=== PATIENT | female | born 1950 | race Two or more races ===

== ENCOUNTER 2019-09-09 06:16 | Day surgery (SDC) | payer OTHER ==
[~2019-09-09 06:16] MED LIST: Acetaminophen TAB* 325 MG PO PRN; Buffered Lidocaine 1% SYRIN* 1 ML/SYRINGE INTRADERM ONE
[2019-09-09] MEDS ORDERED: Midazolam* 1 MG/ML 2 ML VIAL (2 MG) ONE ×2 (07:28→07:33)
[2019-09-09 08:17] VITALS: BP 128/76
--- NOTE | 2019-09-09 09:42 | OP ---
DATE OF OPERATION: 09/09/19 [facility] DATE OF : 50 SURGEON: Lane Davies MD. MUD CAR WORKER: None. ANESTHESIA: Topical with intravenous sedation. PRE-OP DIAGNOSIS: Cataract with astigmatism and glaucoma, left eye. POST-OP DIAGNOSIS: Cataract with astigmatism and glaucoma, left eye. OPERATIVE PROCEDURE: Phacoemulsification and cataract extraction with posterior chamber toric intraocular lens implant and iStent implant, left eye. COMPLICATIONS: None. ESTIMATED BLOOD LOSS: None. DESCRIPTION OF PROCEDURE: The patient was brought to the operating room and given intravenous sedation. A drop of Tetracaine was placed in her left eye. The patient was prepped and draped in the usual sterile fashion for ophthalmic surgery and attention was directed to the left eye where a speculum was placed. A paracentesis was created at the 6 o'clock position and 0.1 cc of 1% preservative- free lidocaine was injected into the anterior chamber followed by DisCoVisc. The eye was digitally stabilized while a 2.75 mm keratome was used to create a triplanar clear corneal incision at the 3 o'clock position. A continuous curvilinear capsulorrhexis was created using a cystotome and Utrata forceps. BSS on a cannula was used to hydrodissect the lens from the capsule. Phacoemulsification was performed in a rzyiso-jts-wtylqvv technique to create 4 fragments, which were removed. Residual cortical material was removed with irrigation and aspiration. The capsular bag was polished. Provisc was used to inflate the capsular bag and the anterior chamber. The intraocular pressure was measured and found to be appropriate. The surface of the eye was lubricated with balanced saline solution. The ORA device was employed to help guide lens choice. An SN6AT5 19 diopter lens was chosen. The lens was folded and inserted into the capsular bag. The radical on the ORA helped to line the axis of the lens to 148 degrees. This was done using a Sinskey hook through the eye to rotate the lens. At this point, DisCoVisc was used to deepen the anterior chamber and coat the surface of the cornea. The patient's head was rotated away from the surgeon and the microscope was rotated toward the surgeon. A gonioprism was placed in the surface of the eye. An iStent was introduced into the anterior chamber on its carcass washer. The iStent was placed into the nasal trabecular meshwork. The carcass washer and the prism were removed. The head of the patient and the microscope were returned to a neutral position. Irrigation and aspiration were performed to remove viscoelastic from the eye. The lens was kept in a stable position using the Sinskey hook. Minimal bleeding occurred from Schlemm's canal. BSS was injected to the anterior chamber and was used to hydrate the cornea and seal the wound. The elevated pressure resulting from the balanced saline injection was enough to tamponade the mild bleeding. At the end of the case, the wound was watertight and the intraocular pressure appeared slightly elevated. The lens was stable, centered , and axially aligned. The iStent was in good position. There were red blood cells circulating the anterior chamber, but no ongoing bleeding. The speculum was removed. Topical Maxitrol ointment was placed in the surface of the eye. The eye was closed, patched, and shielded, and the patient was sent to recovery room in stable condition with postop instructions and followup appointment given. [id number]/[facility] #: [id number]
[2019-09-09] MEDS ORDERED: Phenylephrine OPHTH SOL 2.5%* 2 ML ONE (15:11)
[2019-09-09] MEDS ORDERED: Tropicamide 1% OPTH.SOL* BTL ONE (15:11)
[2019-09-09] MEDS ORDERED: Lidocaine 1% MPF ** 5 ML VIAL ONE (15:11)
[2019-09-09] MEDS ORDERED: Ketorolac 0.5% OPHTH (NF) 0.5 % 5 ML BTL ONE (15:11)
[2019-09-09] MEDS ORDERED: Cyclopentolate 1% OPTH.SOL* 2 ML BTL ONE (15:11)
[2019-09-09] MEDS ORDERED: Neomycin/Polymy/Dex OPHTH.OIN* 3.5 GM ONE (15:11)
[2019-09-09] MEDS ORDERED: Tetracaine 0.5% OPTH.SOL 4 ML* 1 DROP BTL ONE (15:11)
== END 2019-09-09 08:27 | disposition home or self-care (01) ==
LOC: OREAST 06:16
PROVIDERS: ATTEND Ophthalmology
DX: H25.12 Age-related nuclear cataract, left eye (principal); H40.1121 Primary open-angle glaucoma, left eye, mild stage; H52.202 Unspecified astigmatism, left eye; K21.9 Gastro-esophageal reflux disease without esophagitis; K44.9 Diaphragmatic hernia without obstruction or gangrene
CPT/HCPCS: A9270-GY; C1783; J2250; V2787

== ENCOUNTER 2019-09-16 07:11 | Day surgery (SDC) | payer OTHER ==
[2019-09-16] MEDS ORDERED: Cyclopentolate 1% OPTH.SOL* 2 ML BTL ONE (07:51)
[2019-09-16] MEDS ORDERED: Tropicamide 1% OPTH.SOL* BTL ONE (07:52)
[2019-09-16] MEDS ORDERED: Ketorolac 0.5% OPHTH (NF) 0.5 % 5 ML BTL ONE (07:52)
[2019-09-16] MEDS ORDERED: Lidocaine 1% MPF ** 5 ML VIAL ONE (07:52)
[2019-09-16] MEDS ORDERED: Neomycin/Polymy/Dex OPHTH.OIN* 3.5 GM ONE (07:52)
[2019-09-16] MEDS ORDERED: Phenylephrine OPHTH SOL 2.5%* 2 ML ONE (07:52)
[2019-09-16] MEDS ORDERED: Tetracaine 0.5% OPTH.SOL 4 ML* 1 DROP BTL ONE (07:52)
[2019-09-16] MEDS ORDERED: Midazolam* 1 MG/ML 2 ML VIAL (2 MG) ONE ×2 (08:19→08:31)
[2019-09-16] MEDS ORDERED: fentaNYL* 50 MCG/ML 2 ML VIAL (100 MCG VIAL) ONE (08:31)
[2019-09-16 09:36] VITALS: BP 106/76
--- NOTE | 2019-09-16 13:17 | OP ---
DATE OF OPERATION: 09/16/19 [facility] DATE OF : 50 SURGEON: Lane Davies MD CREW DIRECTOR: None. ANESTHESIA: Topical with intravenous sedation. PRE-OP DIAGNOSIS: Cataract with astigmatism and glaucoma, right eye. POST-OP DIAGNOSIS: Cataract with astigmatism and glaucoma, right eye. OPERATIVE PROCEDURE: Phacoemulsification and cataract extraction with posterior chamber toric intraocular lens implant and iStent implant, right eye. COMPLICATIONS: None. ESTIMATED BLOOD LOSS: None. DESCRIPTION OF PROCEDURE: The patient was brought to the operating room and received intravenous sedation. A drop of Tetracaine was placed in her right eye. The patient was prepped and draped in the usual sterile fashion for ophthalmic surgery and attention was directed to the right eye where a speculum was placed. A paracentesis was created at the 11 o'clock position and 0.1 cc of 1% preservative- free lidocaine was injected into the anterior chamber followed by DisCoVisc. The eye was digitally stabilized while a 2.75 mm keratome was used to create a triplanar clear corneal incision at the 9 o'clock position. A continuous curvilinear capsulorrhexis was created with a cystotome and Utrata forceps. BSS on a cannula was used to hydrodissect the lens from the capsule. Phacoemulsification was performed in a wurefo-elw-agbvhku technique to create 4 fragments, which were removed. Residual cortical material was removed with irrigation and aspiration. The capsular bag was polished. Provisc was used to inflate the capsular bag. The eye pressure was checked and found to be appropriate to continue. The surface of the eye was lubricated with BSS. The ORA device was employed. An SN6AT5 17.5 diopter lens was chosen. The radical on the ORA helped guide lens placement at an axis of 41 degrees. The lens was folded and inserted into the capsular bag. It was dialed to the appropriate axial alignment. Supplemental DisCoVisc was used to deepen the anterior chamber and to coat the surface of the cornea. The patient's head was rotated away from the surgeon and the microscope was rotated toward the surgeon. An iStent on its industrial gas servicer helper was introduced into the anterior chamber and a gonioprism was placed in the surface of the eye. Under direct visualization, the iStent was placed into the nasal trabecular meshwork. The industrial gas servicer helper and the prism were removed. The patient's head and the microscope were returned to a neutral position. Irrigation and aspiration were performed to remove viscoelastic from the eye while the Sinskey hook was placed to the paracentesis to stabilize the lens. The Sinskey hook was subsequently removed. BSS on a cannula was used to hydrate the corneal stroma and seal the wound. At the end of the case, the pupil was round. The lens was centered stable and axially aligned. The iStent was in good position. The intraocular pressure appeared normal and the wound was watertight. The speculum was removed and topical Maxitrol ointment was placed in the surface of the eye. The eye was closed, patched, and shielded, and the patient was sent to recovery room in stable condition with postop instructions and followup appointment given. [id number]/[facility] #: [id number] MTDD
== END 2019-09-16 09:22 | disposition home or self-care (01) ==
LOC: OREAST 07:11
PROVIDERS: ATTEND Ophthalmology
DX: H25.11 Age-related nuclear cataract, right eye (principal); H40.1111 Primary open-angle glaucoma, right eye, mild stage; H52.201 Unspecified astigmatism, right eye; K21.9 Gastro-esophageal reflux disease without esophagitis; M19.90 Unspecified osteoarthritis, unspecified site
CPT/HCPCS: A9270-GY; C1783; J2250; J3010; V2787

== ENCOUNTER 2022-08-31 05:42 | Observation (INO) ==
[2022-08-31] MEDS ORDERED: Famotidine IV 10 MG/ML 2 ml VIAL (20 mg) IV SLOW PU ONE (06:00)
[2022-08-31] MEDS ORDERED: Dexamethasone IV 4 MG/ML VIAL 1 ml VIAL IV SLOW PU ONE (06:00)
[2022-08-31] MEDS ORDERED: Lactated Ringers 1000 ml BAG 1,000 ML IV SCH ×2 (06:00→08:00)
[2022-08-31] MEDS ORDERED: Buffered Lidocaine 1% SYRIN 1 ml INTRADERM ONE (06:00)
[2022-08-31] MEDS ORDERED: Dexamethasone IV 4 MG/ML VIAL 1 ml VIAL ONE (06:05)
[2022-08-31] MEDS ORDERED: ceFAZolin 2 GM in NS PREMIX 2 GM/100 ML BAG IVPB ONE (06:05)
[2022-08-31] MEDS ORDERED: Famotidine IV 10 MG/ML 2 ml VIAL (20 mg) ONE (06:06)
[2022-08-31] MEDS ORDERED: Propofol 10 MG/ML 20 ML BTL ONE (06:50)
[2022-08-31] MEDS ORDERED: Lidocaine 2% PF 5 ML VIAL ONE (06:50)
[2022-08-31] MEDS ORDERED: Phenylephrine IV 10 MG/ML 1 ml VIAL ONE (06:50)
[2022-08-31] MEDS ORDERED: Rocuronium 50 mg VIAL 10 mg/ml 5 ml VIAL (50 mg) ONE (06:51)
[2022-08-31] MEDS ORDERED: Midazolam 2 mg/2 ml VIAL 1 mg/ml 2 ml VIAL (2 mg) ONE (06:51)
[2022-08-31] MEDS ORDERED: fentaNYL 100 mcg/2 ml 50 MCG/ML VIAL ONE (06:51)
[2022-08-31] MEDS ORDERED: Magnesium Hydroxide LIQ 30 ML UDC PO PRN (07:38)
[2022-08-31] MEDS ORDERED: Morphine 2 MG/ML SYRINGE IV PRN (07:38)
[2022-08-31] MEDS ORDERED: Ondansetron 4 mg VIAL 2 MG/ML 2 ml VIAL IV PRN (07:38)
[2022-08-31] MEDS ORDERED: Lactulose 30 ml UDC PO PRN (07:38)
[2022-08-31] MEDS ORDERED: Ondansetron ODT 4 mg TAB 4 MG TAB PO PRN (07:38)
[2022-08-31] MEDS ORDERED: Scopolamine 1 mg/72hr PATCH ONE (07:47)
[2022-08-31] MEDS ORDERED: ceFAZolin 1 GM ADVAN 1 GM in NS 0.9% 50 ML 50 ML IVPB SCH ×2 (08:00→16:00)
[2022-08-31] MEDS ORDERED: Acetaminophen IV 1 GM/100ML 1,000 MG/100 ML BAG IV ONE (08:12)
[2022-08-31] MEDS ORDERED: Ondansetron 4 mg VIAL 2 MG/ML 2 ml VIAL ONE (08:13)
[2022-08-31] MEDS ORDERED: fentaNYL 100 mcg/2 ml 50 MCG/ML VIAL IV PRN (08:54)
[2022-08-31] MEDS ORDERED: Naloxone 0.4 mg VIAL 0.4 mg/ml 1 ml VIAL IV PRN (08:54)
[2022-08-31] MEDS ORDERED: Prochlorperazine 5 mg/ml 2 ml VIAL (10 mg) IV PRN (08:54)
[2022-08-31] MEDS ORDERED: Vitamin THERAPEUTIC TAB PO SCH (09:00)
[2022-08-31] MEDS ORDERED: Magnesium Hydroxide LIQ 30 ML UDC PO SCH (09:00)
[2022-08-31 13:14] VITALS: BP 128/79
[2022-09-01] MEDS ORDERED: NF: Olopatadine 0.2% (NF) 1 DROP BTL BOTH EYES SCH (09:00)
== END 2022-08-31 18:10 | disposition home or self-care (01) ==
LOC: SSU 05:42 → OR 05:42
PROVIDERS: ADMIT Orthopaedic Surgery Adult Reconstructive Orthopaedic Surgery; ATTEND Orthopaedic Surgery Adult Reconstructive Orthopaedic Surgery